=== PATIENT | female | born 1950 | race Caucasian/White ===

== ENCOUNTER 2023-01-12 04:01 | Outpatient (CLI) | payer MEDICARE, SELFPAY ==
[2023-01-12] MEDS: Albuterol HFA 18 GM 200 PUFF INH IH (16:15)
[2023-01-12] MEDS: Inhaler, Assist Device 1 EACH MC (16:15)
--- NOTE | 2023-01-13 11:05 | W.PFT ---
Date of service: 01/12/23 Time of Service: 15:05 Pulmonary Function Test Result Indications: COPD Interpretation Spirometry: There is severe airflow limitation. There is a significant bronchodilator response (although less than 200cc improvement due to low volumes). Lung Volumes: Unable to perform Diffusion Capacity: Decreased diffusion Impression Severe airflow obstruction with a decreased diffusion consistent with COPD with emphysema. Clinical Correlation therefore is recommended.
== END 2023-01-12 04:02 | disposition home or self-care (01) ==
LOC: RT 04:01
PROVIDERS: PCP Physician Assistant Medical; Visit Provider Student in an Organized Health Care Education/Training Program
DX: J44.9 Chronic obstructive pulmonary disease, unspecified (principal)
CPT/HCPCS: 94060; 94726; 94729

== ENCOUNTER → 2023-07-28 09:27 | Outpatient (BNVA) | payer MEDICARE, SELFPAY | PROVIDERS: PCP Physician Assistant Medical; Referring Provider Physician Assistant Medical; Visit Provider Student in an Organized Health Care Education/Training Program | DX: J44.9 Chronic obstructive pulmonary disease, unspecified (principal); Z79.899 Other long term (current) drug therapy; R91.1 Solitary pulmonary nodule; Z87.891 Personal history of nicotine dependence; R64 Cachexia; R79.89 Other specified abnormal findings of blood chemistry | CPT/HCPCS: 99214 ==

== ENCOUNTER 2023-07-28 18:21 | Outpatient (REF) | payer MEDICARE, SELFPAY ==
[2023-07-28 14:02] LABS: D-Dimer 855 ng/mlFEU (<500)
== END 2023-07-28 18:22 | disposition home or self-care (01) ==
LOC: LBN 18:21
PROVIDERS: PCP Physician Assistant Medical; Visit Provider Student in an Organized Health Care Education/Training Program
DX: R06.00 Dyspnea, unspecified (principal)
CPT/HCPCS: 85379

== ENCOUNTER → 2023-08-13 02:15 | Outpatient (CLI) | payer MEDICARE, SELFPAY ==
--- NOTE | 2023-08-13 08:12 | DI.CT_ITS ---
Exam(s) CT CHEST PE CTA EXAM: CT CHEST PE CTA CLINICAL HISTORY: worsening dySPNEA,elevated D-dimer,R79.89,R06.00. TECHNIQUE: Imaging Protocol: Axial CT angiography was performed with multi-slice acquisition and mu lti-planar reconstructions as well as axial, coronal and sagittal MIP reconstructions. CONTRAST MATERIAL: Intravenous: Omnipaque 350 Contrast volume:100 ml COMPARISON: CT ABD PELVIS WITH CONTRAST from 01/30/[address] CHEST W LEB from 01/21/2023 FINDINGS: Pulmonary Arteries: No evidence of filling defect to suggest pulmonary emboli. Tracheobronchial tree: Patent where visualized. Mediastinum and Alexa: There is increased size of anterior mediastinal lymph node , now measuring 2.3 cm Pulmonary parenchyma: Emphysematous changes. Stable scarring and interlobular septal thickening. Stab le appearance of post radiation changes in the anterior left upper lobe. No consolidation or dominant measurable mass. Pleura: No effusion or pneumothorax. Heart: The heart is mildly dilated. No coronary artery calcifications are seen. Aorta: Thoracic aorta non-dilated. No aneurysm. No dissection. Upper abdomen: Unremarkable. Bones: No rib destruction. Destruction of portion of the left side of the sternum and manubrium.. Tubes, Catheters, and Lines: None Soft tissues: Surgical clips left axilla. Status post left mastectomy. Abnormal soft tissue density seen along the lateral and left anterior chest wall. Significant interval increase when compared wi th previous it was focal located to the left of midline at the level of the sternum. It is now extens evelia extending from the lateral aspect of the chest to the midline and extending inferiorly nearly vishal n to the level of the diaphragm. There is also skin thickening of the contralateral, right breast. IMPRESSION: No evidence of pulmonary embolism. No acute pulmonary findings. Extensive left sided chest wall mass with bony destruction of the left side of the manubrium and ster num.. RADIATION DOSE DELIVERED: Total DLP DATA REPOSITORY: All CT scans at this facility are submitted to the National Radiology Data Registry (NRDR) Dose Index Registry (DIR) with the [employer] ([employer]). RADIATION OPTIMIZATION: All CT scans at this facility use at least one of these dose optimization te chniques: automated exposure control; mA and/or kV adjustment per patient size (includes targeted exa ms where dose is matched to clinical indication); or iterative reconstruction.
[2023-08-13 12:26] LABS: CREATININE 0.8 mg/dL (0.55-1.02); Estimated GFR 78.24 (mL/min/1.73m2)
[2023-08-13] MEDS: Normal Saline - Diluent 50 ML VIAL IJ (13:23)
[2023-08-13] MEDS: Omnipaque 350 MG/ML 500 ML BTL-Imaging package IJ (13:24)
== END ==
PROVIDERS: PCP Physician Assistant Medical; Visit Provider Student in an Organized Health Care Education/Training Program
DX: R79.89 Other specified abnormal findings of blood chemistry (principal); R06.00 Dyspnea, unspecified
CPT/HCPCS: 71275; 82565